=== PATIENT | female | born 1995 | race Caucasian/White ===

== ENCOUNTER 2018-07-21 07:50 | Emergency (ER) | payer OTHER ==
[2018-07-21 08:08] VITALS: BMI 20.9
[2018-07-21] MEDS ORDERED: Sodium Chloride 0.9% 1,000 ML IV STA ×2 (08:53→11:15)
[2018-07-21] MEDS ORDERED: Sodium Chloride 0.9% 1,000 ML ONE (09:14)
[2018-07-21 09:19] LABS: BASO % 0.1 % (0.0-2.0); EOS % 0.3 % (0.0-4.0); HEMOGLOBIN 14.1 g/dL (11.0-16.0); LYMPH # 0.3 K/uL (1.0-4.3); LYMPH % 2.3 % (20.0-40.0); MEAN CELL VOLUME 92.7 fL (81.0-99.0); MEAN CORPUSCULAR HEMOGLOBIN 31.4 pg (27.0-31.0); MEAN CORPUSCULAR HGB CONC 33.9 g/dL (33.0-37.0); MEAN PLATELET VOLUME 7.8 fL (7.2-11.7); MONO # 0.4 K/uL (0.0-0.8); MONO % 3.2 % (0.0-10.0); NEUT # 12.3 K/uL (1.8-7.0); NEUT % 94.1 % (50.0-75.0); PLATELET COUNT 312 K/uL (130-400); RED CELL DISTRIBUTION WIDTH 12.4 % (11.5-14.5)
[2018-07-21 09:35] LABS: ALB/GLOB RATIO 1.5 (1.0-2.1); ALBUMIN 4.2 g/dL (3.5-5.0); ALT/SGPT 23 U/L (9-52); AST/SGOT 27 U/L (14-36); BLOOD UREA NITROGEN 18 mg/dL (7-17); CALCIUM 9.3 mg/dl (8.6-10.4); GFR NON-AFRICAN AMERICAN > 60; LIPASE 39 U/L (23-300)
[2018-07-21 09:44] LABS: BANDS 4 % (0-2); EOSINOPHIL 1 % (0-4); LYMPHOCYTE 2 % (20-40); MONOCYTE 1 % (0-10); NEUTROPHIL 91 % (50-75); PLATELET ESTIMATE NORMAL (NORMAL); REACTIVE LYMPHOCYTES 1 % (0-0); TOTAL CELLS COUNTED 100
[2018-07-21 10:43] LABS: HCG,QUALITATIVE URINE NEGATIVE (NEGATIVE)
[2018-07-21 10:45] LABS: SQUAMOUS EPITHIAL 3 /hpf (0-5); URINE BILIRUBIN NEGATIVE (NEGATIVE); URINE BLOOD NEGATIVE (NEGATIVE); URINE CLARITY Clear (Clear); URINE COLOR Yellow (YELLOW); URINE GLUCOSE (UA) NORMAL (Normal); URINE LEUKOCYTE ESTERASE NEG Leu/uL (Negative); URINE PROTEIN NEGATIVE (NEGATIVE)
--- NOTE | 2018-07-21 11:08 | C.PDOC ---
History Of Present Illness 23 y/o F c no PMHx p/w vomiting and diarrhea since last night. States ate taco tariq, about 2-3 hours later, had 3 episodes of loose stool and 3 episodes of vomiting, NBNB. Feels achiness in back and lower legs and nausea now. Denies fever, chest pain, dyspnea, syncope. Time Seen by Provider: 07/21/18 07:59 Chief Complaint (Nursing): GI Problem Past Medical History Vital Signs: Last Vital Signs Temp 99.1 F 07/21/18 07:59 Pulse 120 H 07/21/18 07:59 Resp 20 07/21/18 07:59 BP 94/68 L 07/21/18 07:59 Pulse Ox 98 07/21/18 07:59 - Medical History PMH: Pneumonia Family History: States: No Known Family Hx - Social History Hx Alcohol Use: No Hx Substance Use: No - Immunization History Hx Tetanus Toxoid Vaccination: No Hx Influenza Vaccination: No Hx Pneumococcal Vaccination: No Review Of Systems Except As Marked, All Systems Reviewed And Found Negative. Constitutional: Negative for: Fever Cardiovascular: Negative for: Chest Pain Physical Exam - Physical Exam Additional Physical Exam Comments: gen nad head nc/at eyes no icterus ent dry mm neck supple chest no deformity cv tachycardic abd soft, nt back no cva tenderness skin no rash extremities no edema neuro alert ED Course And Treatment - Laboratory Results Result Diagrams: 07/21/18 09:16 07/21/18 09:16 Lab Results: Total Bilirubin 0.6 mg/dL (0.2-1.3) 07/21/18 09:16 AST 27 U/L (14-36) 07/21/18 09:16 ALT 23 U/L (9-52) 07/21/18 09:16 Alkaline Phosphatase 72 U/L (38-126) 07/21/18 09:16 Total Protein 7.0 g/dL (6.3-8.3) 07/21/18 09:16 Albumin 4.2 g/dL (3.5-5.0) 07/21/18 09:16 Globulin 2.8 gm/dL (2.2-3.9) 07/21/18 09:16 Albumin/Globulin Ratio 1.5 (1.0-2.1) 07/21/18 09:16 Lipase 39 U/L (23-300) 07/21/18 09:16 Urine Color Yellow (YELLOW) 07/21/18 10:24 Urine Clarity Clear (Clear) 07/21/18 10:24 Urine pH 6.0 (5.0-8.0) 07/21/18 10:24 Ur Specific [place] 1.023 (1.003-1.030) 07/21/18 10:24 Urine Protein Negative mg/dL (NEGATIVE) 07/21/18 10:24 Urine Glucose (UA) Normal mg/dL (Normal) 07/21/18 10:24 Urine Ketones 1+ mg/dL (NEGATIVE) H 07/21/18 10:24 Urine Blood Negative (NEGATIVE) 07/21/18 10:24 Urine Nitrate Negative (NEGATIVE) 07/21/18 10:24 Urine Bilirubin Negative (NEGATIVE) 07/21/18 10:24 Urine Urobilinogen 2.0 mg/dL (0.2-1.0) H 07/21/18 10:24 Ur Leukocyte Esterase Neg Shayy/uL (Negative) 07/21/18 10:24 Urine WBC (Auto) 2 /hpf (0-5) 07/21/18 10:24 Urine RBC (Auto) 2 /hpf (0-3) 07/21/18 10:24 Ur Squamous Epith Cells 3 /hpf (0-5) 07/21/18 10:24 Urine HCG, Qual Negative (NEGATIVE) 07/21/18 10:24 Urine HCG, Qual Negative (NEGATIVE) 07/21/18 10:24 O2 Sat by Pulse Oximetry: 98 Medical Decision Making Medical Decision Making: hydrated, po challenged successfully. labs unremarkable, mild leuks consistent with symptoms. discharged home, f/u primary care, return to ED for worsening vomiting, pain, lethargy, dyspnea, or any other problem. Disposition - Disposition Referrals: Chica Cody MD [Medical Doctor] - Disposition: HOME/ ROUTINE Disposition Time: 11:08 Condition: FAIR Prescriptions: Ibuprofen [Motrin] 1 tab PO Q6 #30 tab Ondansetron ODT [Zofran ODT] 4 mg PO Q8 #12 odt Instructions: Food Poisoning Forms: [facility] (Yoruba), Work Excuse - Clinical Impression Clinical Impression: Vomiting, Diarrhea
[2018-07-21 12:22] VITALS: RESP 16; O2SAT 100
[2018-07-21 12:57] VITALS: BP 97/65; PULSE 74; TEMP 98.3
== END 2018-07-21 12:54 | disposition home or self-care (01) ==
LOC: C.ER 07:50
DX: R11.10 Vomiting, unspecified (principal); R19.7 Diarrhea, unspecified
CPT/HCPCS: 80053; 81001; 83690; 83735; 84100; 84703; 85025; 96361; 96374; 96375; 99285; J1885; J2405; J7030